=== PATIENT | female | born 1990 | race African-American/Black ===

== ENCOUNTER 2018-10-13 10:25 | Emergency (ER) | payer SELFPAY ==
[~2018-10-13] VITALS: Ht 165.1 cm; Wt 72.6 kg
[2018-10-13 11:39] VITALS: BP 17/62
[2018-10-13 12:06] LABS: BILIRUBIN,URINE NEGATIVE (NEG); CLARITY,URINE CLEAR; COLOR,URINE YELLOW; NITRITE,URINE NEGATIVE (NEG); PH,URINE 5.5; PROTEIN,URINE NEGATIVE (NEG-TRACE); UROBILINOGEN,URINE 0.2 mg/dL (0.2 mg/dL)
[2018-10-13 12:17] LABS: BACTERIA,URINE 0 /HPF (0-FEW); RBC,URINE 0 /HPF (0-2); SQUAMOUS EPITHELIAL CELL,UR FEW /LPF; WBC,URINE 0 /HPF (0-4)
[2018-10-13] MEDS ORDERED: HYDROcodone/APAP 5/325MG 1 TAB TABLET PO ONE (12:30)
[2018-10-13] MEDS ORDERED: METR500T PO (12:45)
[2018-10-13] MEDS ORDERED: NAPR-683 PO (12:45)
--- NOTE | 2018-10-13 12:45 | PHYS DOC ---
Past Medical History Past Medical History: No Pertinent History Past Surgical History: No Surgical History Alcohol Use: None Drug Use: None Adult General Chief Complaint Chief Complaint: VAGINAL PROBLEM HPI HPI Patient is a 28 year old female who presents with complaining of lower abdominal pain. Patient complaining of intermittent episodes of suprapubic pain for the last 2-3 days with nausea and vaginal discharge without vomiting, diarrhea and constipation, urinary symptoms, fever and chills, same problem. She is and her LMP was about 1 month ago. Review of Systems Review of Systems Constitutional: Denies fever or chills [] Eyes: Denies change in visual acuity, redness, or eye pain [] HENT: Denies nasal congestion or sore throat [] Respiratory: Denies cough or shortness of breath [] Cardiovascular: No additional information not addressed in HPI [] GI: Reports abdominal pain, nausea, denies vomiting, bloody stools or diarrhea [] : Denies dysuria or hematuria [] Musculoskeletal: Denies back pain or joint pain [] Integument: Denies rash or skin lesions [] Neurologic: Denies headache, focal weakness or sensory changes [] Endocrine: Denies polyuria or polydipsia [] All other systems were reviewed and found to be within normal limits, except as documented in this note. Current Medications Current Medications Current Medications Medications (Trade) Dose Ordered Sig/Kelsy Start Time Stop Time Status Last Admin Dose Admin Acetaminophen/ Hydrocodone Bitart (Lortab 5/325) 1 tab 1X ONCE 10/13/18 12:30 10/13/18 12:31 DC 10/13/18 12:52 1 TAB Allergies Allergies Allergies Coded Allergies Type Severity Reaction Last Updated Verified No Known Drug Allergies 10/13/18 No Physical Exam Physical Exam Constitutional: Well developed, well nourished, mild distress, non-toxic appearance. [] HENT: Normocephalic, atraumatic. Eyes: PERRLA, EOMI, conjunctiva normal, no discharge. [] Neck: Normal range of motion, no tenderness, supple, no stridor. [] Cardiovascular:Heart rate regular rhythm, no murmur [] Lungs & Thorax: Bilateral breath sounds clear to auscultation [] Abdomen: Bowel sounds normal, soft, no tenderness, no masses, no pulsatile masses. Vaginal exam with present of stock grader showed normal external genitalia, moderate amount of yellow discharge in the vagina without adnexal tenderness or mass. Skin: Warm, dry, no erythema, no rash. [] Back: No tenderness, no CVA tenderness. [] Extremities: No tenderness, no cyanosis, no clubbing, ROM intact, no edema. [] Neurologic: Alert and oriented X 3, normal motor function, normal sensory function, no focal deficits noted. [] Psychologic: Affect normal, judgement normal, mood normal. [] Current Patient Data Vital Signs Vital Signs Date Time Temp Pulse Resp B/P (MAP) Pulse Ox O2 Delivery O2 Flow Rate FiO2 10/13/18 12:52 19 99 Room Air 10/13/18 11:39 98.5 77 17/62 (47) 98.5 Lab Values Laboratory Tests Test 10/13/18 11:30 10/13/18 11:50 POC Urine HCG, Qualitative Hcg negative (Negative) Urine Collection Type Unknown Urine Color Yellow Urine Clarity Clear Urine pH 5.5 Urine Specific [place] 1.025 Urine Protein Negative mg/dL (NEG-TRACE) Urine Glucose (UA) Negative mg/dL (NEG) Urine Ketones (Stick) Negative mg/dL (NEG) Urine Blood Negative (NEG) Urine Nitrite Negative (NEG) Urine Bilirubin Negative (NEG) Urine Urobilinogen Dipstick 0.2 mg/dL (0.2 mg/dL) Urine Leukocyte Esterase Negative (NEG) Urine RBC 0 /HPF (0-2) Urine WBC 0 /HPF (0-4) Urine Squamous Epithelial Cells Few /LPF Urine Bacteria 0 /HPF (0-FEW) Microbiology 10/13/18 Wet Prep - Final, Complete EKG EKG [] Radiology/Procedures Radiology/Procedures [] Course & Med Decision Making Course & Med Decision Making Evaluation of patient in ER showed 28-year-old male patient with complaining of vaginal discharge and lower abdominal pain for a few days. Patient had moderate amount of vaginal discharge and cervix with positive clue cells. Patient treated with [place] in ER and felt better. Plan discharge patient home with diagnosis of bacterial vaginitis. STD treatment was not given because of low STD risk and not having any new sexual partner. Dragon Disclaimer Dragon Disclaimer This electronic medical record was generated, in whole or in part, using a voice recognition dictation system. Departure Departure Impression: Primary Impression: Bacterial vaginitis Additional Impression: Suprapubic pain, acute Disposition: HOME, SELF-CARE (at 1250) Condition: STABLE Referrals: NO PCP (PCP) Patient Instructions: Pelvic Pain, Female, Vaginitis, Ujvo-cy-[id number] Additional Instructions: Drink plenty of liquids Follow-up with your primary care physician in 3-5 days Return to ER if not getting better Scripts Naproxen (NAPROSYN) 500 Mg Tablet 1 TAB PO BID for pain, #20 TAB Prov: MAYCO APARICIO MD 10/13/18 Metronidazole (FLAGYL) 500 Mg Tablet 1 TAB PO BID, #14 TAB Prov: MAYCO APARICIO MD 10/13/18 Problem Qualifiers MAYCO APARICIO MD Oct 13, 2018 12:45
[2018-10-17 17:09] LABS: GC PROBE Negative (Negative)
== END 2018-10-13 13:33 | disposition home or self-care (01) ==
LOC: ER 10:25
DX: N76.0 Acute vaginitis (principal); B96.89 Other specified bacterial agents as the cause of diseases classified elsewhere; R10.30 Lower abdominal pain, unspecified
CPT/HCPCS: 81001; 81025; 87491; 87591; 99284; Q0111

== ENCOUNTER 2019-02-28 12:46 | Emergency (ER) | payer SELFPAY ==
[~2019-02-28] VITALS: Ht 165.1 cm; Wt 78.0 kg
[~2019-02-28 12:46] MED LIST: METR500T PO; NAPR-683 PO
[2019-02-28 13:40] VITALS: BP 118/61
--- NOTE | 2019-02-28 14:17 | PHYS DOC ---
Past Medical History Past Medical History: No Pertinent History Past Surgical History: No Surgical History Alcohol Use: None Drug Use: None Adult General Chief Complaint Chief Complaint: GENERALIZED BODY ACHES HPI HPI Patient is a 29 year old female patient who presents to the ED today with multiple complaints. Patient is complaining of sharp throbbing intermittent 10 out of 10 left upper gum dental pain that has been going on since Tuesday. She reports she was seen by the dentist who recommended she has her wisdom teeth removed by an oral surgeon, patient states she has an appointment in 3 weeks. Patient states she was put on amoxicillin and ibuprofen. Patient denies any exacerbating or relieving factors to her dental pain. Patient is also complaining of mild lower back pain that she report has been going on for a while, she doesn't have any specific dates. She states she's been working at [employer] and has been lifting heavy items which is causing her the p ain. She states this job at [employer] is getting to her causing her this back pain. Patient states the pain is worse when she is at work. She states she reported this issue to her boss who told her to take one day off which was yesterday. She states right now she is not in any position to go back to work and is requesting a day off. Patient denies any known injury. Denies any pain radiating to bilateral lower extremities. Denies any loss of bowel bladder function. Patient is also reporting nasal congestion and a cough that began on Tuesday. She is currently using [id number] remedies. Patient is also requesting a note for work. Review of Systems Review of Systems Constitutional: Denies fever or chills [] Eyes: Denies change in visual acuity, redness, or eye pain [] HENT: Reports dental pain and nasal congestion, denies sore throat [] Respiratory: Reports cough, denies shortness of breath [] Cardiovascular: No additional information not addressed in HPI [] GI: Denies abdominal pain, nausea, vomiting, bloody stools or diarrhea [] : Denies dysuria or hematuria [] Musculoskeletal: Reports low back pain Integument: Denies rash or skin lesions [] Neurologic: Denies headache, focal weakness or sensory changes [] All other systems were reviewed and found to be within normal limits, except as documented in this note. Allergies Allergies Allergies Coded Allergies Type Severity Reaction Last Updated Verified No Known Drug Allergies 10/13/18 No Physical Exam Physical Exam Constitutional: Well developed, well nourished, no acute distress, non-toxic appearance. [] HENT: Normocephalic, atraumatic, bilateral external ears normal, oropharynx moist, no oral exudates, small amount of clear rhinorrhea noted to bilateral nasal cavities slight swelling noted on the left upper gum around the wisdom tooth with no erythema Eyes: PERRLA, EOMI, conjunctiva normal, no discharge. [] Neck: Normal range of motion, no tenderness, supple, no stridor. [] Cardiovascular:Heart rate regular rhythm, no murmur [] Lungs & Thorax: Bilateral breath sounds clear to auscultation [] Abdomen: Bowel sounds normal, soft, no tenderness, no masses, no pulsatile masses. [] Skin: Warm, dry, no erythema, no rash. [] Back: No tenderness, no CVA tenderness. [] Extremities: No tenderness, no cyanosis, no clubbing, ROM intact, no edema. [] Neurologic: Alert and oriented X 3, normal motor function, normal sensory function, no focal deficits noted. [] Psychologic: Affect normal, judgement normal, mood normal. [] Current Patient Data Vital Signs Vital Signs Date Time Temp Pulse Resp B/P (MAP) Pulse Ox O2 Delivery O2 Flow Rate FiO2 02/28/19 13:40 98.6 97 18 118/61 (80) 95 Room Air 98.6 EKG EKG [] Radiology/Procedures Radiology/Procedures [] Course & Med Decision Making Course & Med Decision Making Pertinent Labs and Imaging studies reviewed. (See chart for details) This is a 29-year-old female patient presenting to the ED today with multiple complaints including dental pain currently on amoxicillin and ibuprofen. Also complaining of back pain from working at [employer]. Also complaining of cough and nasal congestion. Patient is currently on treatment with amoxicillin, encourage her to continue taking the medication. We also discussed [id number] remedies. At this point she admits MSE criteria per hospital protocal. She left AMA Drag Disclaimer Dragon Disclaimer This electronic medical record was generated, in whole or in part, using a voice recognition dictation system. Departure Departure Impression: Primary Impression: Dentalgia Additional Impressions: Back pain URI (upper respiratory infection) Cough Disposition: AGAINST MEDICAL ADVICE Condition: STABLE Referrals: NO PCP (PCP) Problem Qualifiers Additional Impressions: Back pain Back pain location: low back pain Chronicity: acute Back pain laterality: bilateral Sciatica presence: without sciatica Qualified Codes: M54.5 - Low back pain URI (upper respiratory infection) URI type: unspecified URI Qualified Codes: J06.9 - Acute upper respiratory infection, unspecified RAFI GRA[employer] Feb 28, 2019 14:17
== END 2019-02-28 14:45 | disposition left against medical advice (07) ==
LOC: ER 12:46
DX: K08.89 Other specified disorders of teeth and supporting structures (principal); J06.9 Acute upper respiratory infection, unspecified; M54.5 Low back pain; R05 Cough
CPT/HCPCS: 99281